=== PATIENT | male | born 1950 | race Caucasian/White ===

== ENCOUNTER 2016-08-25 08:22 | Outpatient (CLI) | payer MEDICARE ==
[2016-08-25 13:21] LABS: Hemoglobin A1c 6.3 % (4.0-6.0)
== END 2016-08-25 08:23 ==
LOC: NAVSJIPCSP 08:22
PROVIDERS: ATTEND Internal Medicine
DX: E78.5 Hyperlipidemia, unspecified (principal); E11.51 Type 2 diabetes mellitus with diabetic peripheral angiopathy without gangrene; Z79.899 Other long term (current) drug therapy
CPT/HCPCS: 36415; 80061; 83036

== ENCOUNTER 2016-11-22 08:11 | Outpatient (CLI) | payer MEDICARE ==
[2016-11-22 13:04] LABS: ALT (SGPT) 17 U/L (0-55); AST (SGOT) 17 U/L (5-34); Albumin 4.5 g/dL (3.4-4.8); Alkaline Phosphatase 38 U/L (40-150); Anion Gap 17 mmol/L (10-20); BUN (Urea Nitrogen) 22 mg/dL (8.4-25.7); Bilirubin, Total 0.3 mg/dL (0.2-1.2); Calc. Creatinine Clearance 0 mL/min (70-130); Calcium 9.4 mg/dL (7.8-10.44); Carbon Dioxide 24 mmol/L (23-31); Cardiac Risk 4.7 (Less than 4.5); Chloride 100 mmol/L (98-107); Cholesterol 173 mg/dL (< 200 Desired); Estimated GFR-MDRD 64; Globulin 2.5 g/dL (2.4-3.5); Glucose 147 mg/dL (80-115); HDL Cholesterol 37 mg/dL (>60 Neg Risk); LDL Cholesterol, Calculated 91 mg/dL; Potassium 5.6 mmol/L (3.5-5.1); Sodium 135 mmol/L (136-145); Triglycerides 224 mg/dL (Less than 150)
[2016-11-22 13:59] LABS: #Basophils 0.1 thou/uL (0.0-0.2); #Eosinphils 0.2 thou/uL (0.0-0.7); #Lymphocytes 2.9 thou/uL (1.20-3.40); #Monocytes 0.6 thou/uL (0.11-0.59); %Eosinophils 1.6 % (0.0-10.0); %Lymphocytes 26.7 % (21.0-51.0); %Monocytes 5.5 % (0.0-10.0); %Neutrophils 65.2 % (42.0-75.0); Hemoglobin 13.7 g/dL (14.0-18.0); Mean Corpuscular HGB CONC 32.5 g/dL (32.0-36.0); Mean Corpuscular Hemoglobin 28.8 pg (27.0-31.0); Mean Corpuscular Volume 88.6 fl (80.0-94.0); Platelet Count 268 thou/uL (130-400); Red Blood Cell (RBC) Count 4.75 mill/uL (4.70-6.10); White Blood Cell (WBC) Count 10.7 thou/uL (4.8-10.8)
[2016-11-22 14:15] LABS: Bilirubin Negative (Negative); Blood, Urine Negative (Negative); Clarity Clear (Clear); Glucose, Urine (Dipstick) Negative (Negative); Leukocyte Negative (Negative); Nitrite Negative (Negative); Protein, Urine (Dipstick) Negative (Neg-Trace); Specific Gravity, Urine 1.015 (1.005-1.030); Urobilinogen 0.2 mg/dL (0.2-1.0)
[2016-11-22 14:37] LABS: Hemoglobin A1c 6.4 % (4.0-6.0)
== END 2016-11-22 08:12 | disposition home or self-care (01) ==
LOC: NAVSJIPCSP 08:11
PROVIDERS: ATTEND Internal Medicine
DX: E78.5 Hyperlipidemia, unspecified (principal); I11.9 Hypertensive heart disease without heart failure; E11.51 Type 2 diabetes mellitus with diabetic peripheral angiopathy without gangrene; Z79.899 Other long term (current) drug therapy
CPT/HCPCS: 36415; 80053; 80061; 81003; 83036; 85025

== ENCOUNTER 2016-12-01 14:17 | Outpatient (CLI) | payer MEDICARE ==
[2016-12-01 15:38] LABS: Anion Gap 16 mmol/L (10-20); BUN (Urea Nitrogen) 18 mg/dL (8.4-25.7); Calc. Creatinine Clearance 0 mL/min (70-130); Calcium 9.5 mg/dL (7.8-10.44); Carbon Dioxide 24 mmol/L (23-31); Chloride 103 mmol/L (98-107); Estimated GFR-MDRD 74; Glucose 119 mg/dL (80-115); Potassium 4.7 mmol/L (3.5-5.1); Sodium 138 mmol/L (136-145)
== END 2016-12-01 14:18 | disposition home or self-care (01) ==
LOC: NAVSJIPCSP 14:17
PROVIDERS: ATTEND Specialist
DX: E87.5 Hyperkalemia (principal)
CPT/HCPCS: 36415; 80048

== ENCOUNTER 2017-04-11 09:26 | Outpatient (CLI) | payer MEDICARE ==
[2017-04-11 12:38] LABS: Cardiac Risk 4.2 (Less than 4.5)
[2017-04-11 13:18] LABS: Hemoglobin A1c 6.2 % (4.0-6.0)
[2017-04-11 17:28] LABS: Creatinine, Urine 105.36 mg/dL (63-166); Microalbumin Urine 1.1 mg/dL (0.5-50.0); Microalbumin/Creat Ratio 10.4 mg/g (Less than 30)
== END 2017-04-11 09:27 | disposition home or self-care (01) ==
LOC: NAVSJIPCSP 09:26
PROVIDERS: ATTEND Internal Medicine
DX: Z12.5 Encounter for screening for malignant neoplasm of prostate (principal); Z12.11 Encounter for screening for malignant neoplasm of colon; E78.5 Hyperlipidemia, unspecified; E11.51 Type 2 diabetes mellitus with diabetic peripheral angiopathy without gangrene; Z79.899 Other long term (current) drug therapy
CPT/HCPCS: 36415; 80061; 82043; 83036; G0103

== ENCOUNTER 2017-04-18 10:44 | Outpatient (CLI) | payer MEDICARE | END 2017-04-18 10:45 | disposition home or self-care (01) | LOC: NAVSJIPCSP 10:44 | PROVIDERS: ATTEND Internal Medicine | DX: Z12.11 Encounter for screening for malignant neoplasm of colon (principal); E78.5 Hyperlipidemia, unspecified ==

== ENCOUNTER 2018-12-27 10:14 | Emergency (ER) | payer MEDICARE ==
[~2018-12-27 10:14] MED LIST: Iopamidol 370 76% 100 ML VIAL ONE
[2018-12-27 10:50] LABS: #Basophils 0.1 thou/uL (0.0-0.2); #Eosinphils 0.1 thou/uL (0.0-0.7); #Lymphocytes 2.5 thou/uL (1.20-3.40); #Monocytes 0.6 thou/uL (0.11-0.59); #Neutrophils 5.5 thou/uL (1.40-6.50); %Basophils 1.5 % (0.0-1.0); %Eosinophils 1.6 % (0.0-10.0); %Lymphocytes 28.6 % (21.0-51.0); %Monocytes 6.4 % (0.0-10.0); %Neutrophils 61.9 % (42.0-75.0); Hemoglobin 14.3 g/dL (14.0-18.0); Mean Corpuscular HGB CONC 32.4 g/dL (32.0-36.0); Mean Corpuscular Hemoglobin 28.3 pg (27.0-31.0); Mean Corpuscular Volume 87.5 fL (78.0-98.0); Mean Platelet Volume 8.7 fL (7.4-10.4); Platelet Count 252 thou/uL (130-400); RBC Distribution Width 12.9 % (11.5-14.5); Red Blood Cell (RBC) Count 5.04 mill/uL (4.70-6.10); White Blood Cell (WBC) Count 8.8 thou/uL (4.8-10.8)
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
[2018-12-27 11:05] LABS: CKMB 1.5 ng/mL (0-6.6)
[2018-12-27 11:06] LABS: ALT (SGPT) 16 U/L (8-55); AST (SGOT) 20 U/L (5-34); Albumin 4.4 g/dL (3.4-4.8); Alkaline Phosphatase 35 U/L (40-150); Anion Gap 17 mmol/L (10-20); BUN (Urea Nitrogen) 20 mg/dL (8.4-25.7); Bilirubin, Total 0.4 mg/dL (0.2-1.2); CK (CPK) 84 U/L (30-200); Calc. Creatinine Clearance 0 mL/min (70-130); Calcium 9.7 mg/dL (7.8-10.44); Carbon Dioxide 24 mmol/L (23-31); Chloride 101 mmol/L (98-107); Estimated GFR-MDRD 69; Globulin 2.3 g/dL (2.4-3.5); Glucose 173 mg/dL (80-115); Potassium 4.7 mmol/L (3.5-5.1); Protein, Total 6.7 g/dL (5.8-8.1); Sodium 137 mmol/L (136-145)
--- NOTE | 2018-12-27 13:07 | CT ---
CT angiography of neck and head performed with intravenous contrast enhancement with 3-D reconstructi ons HISTORY: Paresthesias of left upper extremity. Loss of vision for 30 to 40 seconds. COMPARISON: Noncontrast CT of the head done earlier today. FINDINGS: There is some groundglass opacity seen in the posterior aspects of both upper lobes, this c ould be chronic in nature or related some mild pneumonitis-type change. Also minimal changes within the superior segment of the right upper lobe. The thyroid gland is unremarkable. Vocal cord region and parapharyngeal spaces appear clear. The paro tid and submandibular glands are normal. The origin of the left vertebral artery is very difficult to visualize due to venous contamination. T he left vertebral is slightly larger than the right and makes the main contribution to the basilar artery. The left common carotid artery has a separate origin from the aortic arch. A carotid stent crosses fr om the left common carotid artery into the internal carotid artery without evidence of any areas of stenosis. There is a left external carotid artery present without significant narrowing. On the right side there is calcified and soft plaque at the origin of the right internal carotid vivek ry and approximately 60% stenosis by nascent criteria. No significant stenosis of the external carotid artery. CT angiography of head performed with contrast with 3-D reconstructions: There are atherosclerotic ch anges of the cavernous portions of both internal carotid arteries. No evidence of any thrombus within either the A1 or M1 segments of either anterior or middle cerebral artery. Peripheral flow anatoly ears symmetric. There is a patent anterior communicating artery. Posterior cerebral arteries are normal. IMPRESSION: 1. Approximately 60% stenosis of the right internal carotid artery by Nascent criteria. 2. No significant stenosis of the left internal carotid artery. 3. Other incidental findings as noted above.
== END 2018-12-27 14:47 | disposition short-term general hospital (02) ==
LOC: NAV ERS 10:14
DX: G45.9 Transient cerebral ischemic attack, unspecified (principal); I25.2 Old myocardial infarction; I25.10 Atherosclerotic heart disease of native coronary artery without angina pectoris; I48.91 Unspecified atrial fibrillation; E11.9 Type 2 diabetes mellitus without complications; K21.9 Gastro-esophageal reflux disease without esophagitis; E78.5 Hyperlipidemia, unspecified; I10 Essential (primary) hypertension; J44.9 Chronic obstructive pulmonary disease, unspecified; G47.30 Sleep apnea, unspecified; F17.210 Nicotine dependence, cigarettes, uncomplicated; Z79.84 Long term (current) use of oral hypoglycemic drugs; Z79.899 Other long term (current) drug therapy; Z79.82 Long term (current) use of aspirin; Z79.51 Long term (current) use of inhaled steroids
CPT/HCPCS: 36415; 70450; 70496; 70498; 71045; 80053; 82550; 82553; 84484; 85025; 85379; 93005; Q9967